=== PATIENT | male | born 2005 | race Caucasian/White ===

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

== ENCOUNTER → 2023-11-03 | Outpatient (CLI) | payer BC ==
[2023-11-03 17:17] LABS: PROLACTIN 11.48 NG/ML (2.1-17.7)
[2023-11-03 17:19] LABS: ESTRADIOL 36.6 PG/ML (<39.8)
== END ==
LOC: M WUC 14:00
PROVIDERS: ATTEND Nurse Practitioner Adult Health
DX: N62 Hypertrophy of breast (principal)

== ENCOUNTER → 2023-11-28 | Outpatient (REF) | payer BC ==
[2023-11-28 19:25] LABS: ALBUMIN 4.5 G/DL (3.2-5.2); ALKALINE PHOSPHATASE 86 U/L (46-116); ALT/SGPT 23 U/L (7.0-40); AST/SGOT 16 U/L (<34); BLOOD UREA NITROGEN 12 MG/DL (9-23); CALCIUM LEVEL 9.6 MG/DL (8.5-10.1); CARBON DIOXIDE LEVEL 30 MMOL/L (20-31); CHLORIDE LEVEL 107 MMOL/L (98-107); CHOLESTEROL LEVEL 127 MG/DL (<200); CHOLESTEROL RISK RATIO 3.67 (<5); CREATININE FOR GFR 0.84 MG/DL (0.70-1.30); GLUCOSE, FASTING 60 MG/DL (60-100); HDL CHOLESTEROL 34.6 MG/DL (>40); LDL CHOLESTEROL 64.2 MG/DL (<100); NON-HDL-C 92.4 MG/DL; POTASSIUM SERUM 4.5 MMOL/L (3.5-5.1); SODIUM LEVEL 140 MMOL/L (136-145); TOTAL PROTEIN 7.5 G/DL (5.7-8.2); TRIGLYCERIDES LEVEL 141 MG/DL (<150)
[2023-11-28 19:26] LABS: TOTAL 25(OH) VITAMIN D 24.3 NG/ML (20.0-100.0)
[2023-11-28 19:50] LABS: HIV 1&2 SCREEN NEGATIVE (NEGATIVE)
[2023-11-28 19:58] LABS: HEPATITIS C VIRUS ABY INDEX < 0.02 INDEX (<0.8)
== END ==
LOC: M LAB REF 17:55
PROVIDERS: ATTEND Physician Assistant
DX: Z11.9 Encounter for screening for infectious and parasitic diseases, unspecified (principal); E55.9 Vitamin D deficiency, unspecified; Z13.220 Encounter for screening for lipoid disorders

== ENCOUNTER → 2024-02-06 | Outpatient (CLI) | payer BC ==
[2024-02-06 17:19] LABS: PROLACTIN 11.38 NG/ML (2.1-17.7)
[2024-02-06 17:20] LABS: ESTRADIOL 44.8 PG/ML (<39.8)
== END ==
LOC: M WUC 14:55
PROVIDERS: ATTEND Nurse Practitioner Adult Health
DX: N62 Hypertrophy of breast (principal)

== ENCOUNTER → 2024-11-02 | Outpatient (CLI) | payer BC ==
[2024-11-02 11:19] LABS: PROLACTIN 10.1 NG/ML (2.1-17.7)
== END ==
LOC: M LAB 10:15
PROVIDERS: ATTEND Student in an Organized Health Care Education/Training Program
DX: N62 Hypertrophy of breast (principal)

== ENCOUNTER 2025-05-26 19:50 | Emergency (ER) | payer BC ==
[~2025-05-26] VITALS: Ht 170.2 cm; Wt 62.5 kg
[2025-05-26 19:52] VITALS: TEMP 99.1
[2025-05-26 23:00] VITALS: BP 117/61
[2025-05-26 23:20] VITALS: O2SAT 99
== END 2025-05-27 00:18 | disposition left against medical advice (07) ==
LOC: M ED 19:50
DX: Z53.21 Procedure and treatment not carried out due to patient leaving prior to being seen by health care provider (principal)